=== PATIENT | female | born 2000 | race Caucasian/White ===

== ENCOUNTER 2023-12-25 09:55 | Inpatient (IN) | payer OTHER ==
[~2023-12-25] VITALS: Ht 162.6 cm; Wt 77.4 kg
[2023-12-25] VITALS (34 sets, daily range): BP systolic 120–166; BP diastolic 66–112; O2SAT 97
[2023-12-25] MEDS ORDERED: ONDA4TAB6 PO (10:30)
[2023-12-25] MEDS ORDERED: PRENTAB9 PO (10:30)
[2023-12-25] MEDS ORDERED: OXYTOCIN DRIP 30 UNITS in IV 1 EA IV PRN (10:30)
[2023-12-25] MEDS ORDERED: TUMS500C PO (10:30)
[2023-12-25] MEDS ORDERED: TRANEXAMIC ACID INJection 1,000 MG in NS 100 ML IV PRN (10:30)
[2023-12-25] MEDS ORDERED: METHYLERGONOVINE MALEATE 0.2MG/ML 1ML VIAL IM PRN (10:30)
[2023-12-25 11:13] LABS: HEMOGLOBIN 10.4 g/dl (12.0-15.5); MEAN CORPUSCULAR HEMOGLOBIN 28.6 pg (27.0-33.0); MEAN CORPUSCULAR HGB CONC 33.5 g/dl (32.0-36.5); MEAN CORPUSCULAR VOLUME 85.2 fl (80.0-96.0); PLATELET COUNT, AUTOMATED 216 10^3/uL (150-450); RED BLOOD COUNT 3.64 10^6/uL (4.00-5.40); WHITE BLOOD COUNT 8.4 10^3/uL (4.0-10.0)
[2023-12-25] MEDS: VANCOMYCIN HCL 1,000 MG, VIAL MATE ADAPTER 1 EACH in NS 250 ML IV SCH (11:28)
[2023-12-25] MEDS: CALCIUM CARBONATE 500 MG CHEW U/D PO PRN (13:09)
[2023-12-25] MEDS ORDERED: NALOXONE INJ 0.4MG/1ML VIAL IV PRN (13:15)
[2023-12-25] MEDS ORDERED: LR 500 ML IV PRN (13:15)
[2023-12-25] MEDS ORDERED: ePHEDrine SULFATE 25 MG/5 ML(5MG/ML) SYRINGE IVP PRN (13:15)
[2023-12-25] MEDS ORDERED: EPIDURAL/PCA KEYS XX PRN (13:15)
[2023-12-25] MEDS ORDERED: diphenhydrAMINE 50MG/ML VIAL IV PRN (13:15)
[2023-12-25] MEDS: LACTATED RINGER'S 1000 ML IV STA (14:06)
[2023-12-25] MEDS: LR 1,000 ML IV SCH ×2 (14:06→20:50)
[2023-12-25] MEDS: FENTANYL/ROPIVACAINE/NACL BAG 100 ML EPIDURAL SCH (14:10)
[2023-12-25] MEDS: ONDANSETRON 4MG 2ML VIAL IV PRN (16:57)
[2023-12-25] MEDS ORDERED: OXYTOCIN DRIP 30 UNITS in IV 1 EA IV SCH (18:25)
[2023-12-25] MEDS ORDERED: LR 1,000 ML IV SCH (18:25)
[2023-12-25] MEDS ORDERED: VANCOMYCIN HCL 1,500 MG, VIAL MATE ADAPTER 1 EACH in D5W 250 ML IV SCH (18:45)
[2023-12-25] MEDS: VANCOMYCIN HCL 1,000 MG, VIAL MATE ADAPTER 1 EACH in D5W 250 ML IV SCH (18:58)
[2023-12-25] MEDS ORDERED: VANCOMYCIN HCL 1,000 MG, VIAL MATE ADAPTER 1 EACH in NS 250 ML IV SCH (19:00)
[2023-12-25] MEDS ORDERED: VANCOMYCIN HCL 500 MG in D5W MINI-BAG PLUS 100 ML IV SCH (20:00)
[2023-12-25] MEDS ORDERED: DIBUCAINE 1% OINTMENT 30GM TOP PRN (20:50)
[2023-12-25] MEDS ORDERED: RHOGAM 300MCG (1500IU) INJ IM SCH (20:50)
[2023-12-25] MEDS ORDERED: METOCLOPRAMIDE INJ 10MG/2ML VIAL IV PRN (20:50)
[2023-12-25] MEDS ORDERED: MOM 30ML SUSPENSION UDC PO PRN (20:50)
[2023-12-25] MEDS ORDERED: METHYLERGONOVINE MALEATE 0.2 MG TAB PO PRN (20:50)
[2023-12-25] MEDS ORDERED: ACETAMINOPHEN TAB 650MG DOSE (2X325MG) PO PRN (20:50)
[2023-12-25] MEDS ORDERED: IBUPROFEN 600MG TAB PO PRN (20:50)
[2023-12-25] MEDS: FAMOTIDINE 20 MG TAB PO ONE (21:00)
[2023-12-25] MEDS: OXYTOCIN DRIP 30 UNITS in IV 1 EA IV SCH ×2 (21:00→21:12)
[2023-12-25] MEDS: IBUPROFEN 800 MG TAB PO PRN (23:52)
[2023-12-25] MEDS: ACETAMINOPHEN 500 MG TAB PO PRN (23:53)
[2023-12-26 06:00] VITALS: BP 119/75; O2SAT 98
[2023-12-26] MEDS: PRENATAL VITAMINS CHEWABLE TABLET PO SCH (08:16)
[2023-12-26] MEDS: DOCUSATE SODIUM 100MG CAPSULE PO PRN (14:59)
[2023-12-26 18:00] VITALS: BP_SYST 114; BP_SYST 122; BP_DIAS 65; BP_DIAS 73; O2SAT 97; O2SAT 98
[2023-12-27 05:51] VITALS: BP 128/76; O2SAT 97
[2023-12-27] MEDS: MEASLES,MUMPS,RUBELLA VACCINE INJ (MMR-II) SC.IMMUN ONE (07:15)
[2023-12-27] MEDS ORDERED: IBUP-1022 PO (10:22)
[2023-12-27] MEDS ORDERED: COLA100C5 PO (10:22)
[2023-12-27] MEDS ORDERED: ACET1TAB55 PO (10:22)
== END 2023-12-27 11:10 | disposition home or self-care (01) | DRG 807 ==
LOC: M LDO 09:55 → M LDI 10:19 → M OBS 23:35
PROVIDERS: ADMIT Advanced Practice Midwife; ATTEND Obstetrics & Gynecology
PROC: 10E0XZZ Delivery of Products of Conception, External Approach (ICD-10-PCS; principal; 2023-12-25)
DX: O99.824 Streptococcus B carrier state complicating childbirth (principal); Z37.0 Single live birth; Z3A.39 39 weeks gestation of pregnancy; Z88.0 Allergy status to penicillin; Z88.1 Allergy status to other antibiotic agents; O69.2XX0 Labor and delivery complicated by other cord entanglement, with compression, not applicable or unspecified

== ENCOUNTER 2024-02-05 14:39 | Emergency (ER) | payer OTHER ==
[~2024-02-05] VITALS: Ht 162.6 cm; Wt 69.0 kg
[~2024-02-05 14:39] MED LIST: ACET1TAB55 PO; COLA100C5 PO; IBUP-1022 PO; ONDA4TAB6 PO; PRENTAB9 PO; TUMS500C PO
[2024-02-05] MEDS ORDERED: CLEO300C2 (15:46)
[2024-02-05] MEDS ORDERED: IBUP200T46 PO (15:46)
[2024-02-05 17:19] LABS: BASO % 0.4 % (0.0-1.0); EOS # 0.2 10^3/uL (0.0-0.5); EOS % 4.2 % (0.0-3.0); HEMATOCRIT 34.2 % (36.0-47.0); LYMPH # 1.1 10^3/uL (1.5-5.0); LYMPH % 19.6 % (24.0-44.0); MEAN CORPUSCULAR HEMOGLOBIN 27.4 pg (27.0-33.0); MEAN CORPUSCULAR HGB CONC 32.2 g/dl (32.0-36.5); MEAN CORPUSCULAR VOLUME 85.3 fl (80.0-96.0); MONO # 0.4 10^3/uL (0.0-0.8); MONO % 6.4 % (2.0-8.0); NEUTROPHILS # 3.9 10^3/uL (1.5-8.5); NEUTROPHILS % 69.2 % (36.0-66.0); PLATELET COUNT, AUTOMATED 305 10^3/uL (150-450); RED BLOOD COUNT 4.01 10^6/uL (4.00-5.40); WHITE BLOOD COUNT 5.7 10^3/uL (4.0-10.0)
[2024-02-05 17:45] LABS: ERYTHROCYTE SEDIMENTATION RATE 61 mm/hr (0-20)
[2024-02-05 18:27] VITALS: BP 140/90; TEMP 97.6; O2SAT 98
== END 2024-02-05 18:28 | disposition home or self-care (01) ==
LOC: M ED 14:39
DX: N61.22 Granulomatous mastitis, left breast (principal); Z88.0 Allergy status to penicillin; Z88.1 Allergy status to other antibiotic agents; Z79.810 Long term (current) use of selective estrogen receptor modulators (SERMs); Z79.1 Long term (current) use of non-steroidal anti-inflammatories (NSAID); Z79.2 Long term (current) use of antibiotics